=== PATIENT | female | born 1990 | race African-American/Black ===

== ENCOUNTER → 2017-04-01 | Outpatient (CLI) | payer OTHER ==
--- NOTE | 2017-04-01 16:19 | KCIC ---
[facility] W/TV Clinical Indication: Left lower quadrant pain. Comparison: None. TECHNIQUE: Real-time ultrasound imaging of the pelvis using transabdominal and transvaginal window is performed. Findings: Uterus measures 8.4 x 3.2 x 4.5 cm. Anteverted uterus. Endometrial stripe is normal measuring 1 mm. Probable subserosal hypoechoic fibroid of the right anterior uterus near the fundus measuring 11 x 6 x 14 mm. There are right and the left ovarian follicles. There is normal blood flow in the ovaries. The right ovary measures 2 x 2.7 x 2.2 cm. The left ovary measures 3.3 x 2.3 x 2.6 cm. Mild cul-de-sac free fluid. No evidence of adnexal mass. IMPRESSION: 1. Normal blood flow in the ovaries. 2. Mild cul-de-sac free fluid, likely physiologic. 3. Small right anterior fundal fibroid. Electronically signed by: Ulysses Mccallum MD (04/01/2017 4:16 PM) [id number]
== END | disposition home or self-care (01) ==
LOC: KCIC US 14:41
PROVIDERS: ATTEND Obstetrics & Gynecology
CPT/HCPCS: 76830; 76856

== ENCOUNTER 2017-08-09 03:04 | Emergency (ER) | payer OTHER ==
[2017-08-09] MEDS: ALPRAZolam 0.5 MG TABLET PO (03:35)
[2017-08-09] MEDS: IBUPROFEN 800 MG TABLET. PO (03:35)
[2017-08-09] MEDS: AMOXICILLIN/K CLAV 875/125MG TABLET. PO (03:35)
[2017-08-09] MEDS: DIPHTH,PERTUSS(ACELL),TET TOX 0.5 ML DISP.SYRIN. VAX IM (03:36)
== END 2017-08-09 04:34 | disposition home or self-care (01) ==
LOC: ER 03:04
DX: S61.253A Open bite of left middle finger without damage to nail, initial encounter (principal); S51.851A Open bite of right forearm, initial encounter; Z88.5 Allergy status to narcotic agent; Y04.1XXA Assault by human bite, initial encounter; Y93.89 Activity, other specified; Y99.8 Other external cause status; Y92.89 Other specified places as the place of occurrence of the external cause
CPT/HCPCS: 73140; 90471; 90715; 99284-25

== ENCOUNTER 2017-08-11 13:56 | Emergency (ER) | payer OTHER ==
[2017-08-11 16:09] LABS: URINE HCG POC HCG NEGATIVE (Negative)
[2017-08-11] MEDS: ALPRAZolam 0.5 MG TABLET PO (16:11)
[2017-08-11 16:20] LABS: AMPHETAMINE/METHAMPHETAMINE NEG (NEG); BARBITURATES NEG (NEG); BENZODIAZEPINES NEG (NEG); CANNABINOIDS NEG (NEG); COCAINE NEG (NEG); ETHANOL, URINE POS (NEG); METHADONE NEG (NEG); OPIATES NEG (NEG); PHENCYCLIDINE NEG (NEG)
== END 2017-08-11 17:20 | disposition home or self-care (01) ==
LOC: ER 13:56
DX: F41.9 Anxiety disorder, unspecified (principal); F32.9 Major depressive disorder, single episode, unspecified; Z79.899 Other long term (current) drug therapy; Z88.5 Allergy status to narcotic agent
CPT/HCPCS: 80307; 81025; 99284

== ENCOUNTER → 2017-11-14 | Outpatient (CLI) | payer OTHER | END | disposition home or self-care (01) | LOC: KCIC CT 13:24 | DX: S09.90XD Unspecified injury of head, subsequent encounter (principal); R42 Dizziness and giddiness; Z87.891 Personal history of nicotine dependence; X58.XXXD Exposure to other specified factors, subsequent encounter | CPT/HCPCS: 70450 ==